=== PATIENT | female | born 1995 | race Asian ===

== ENCOUNTER 2017-02-15 22:49 | Emergency (ER) | payer BC, OTHER ==
[~2017-02-15] VITALS: Ht 162.6 cm; Wt 78.0 kg
[2017-02-15 23:01] VITALS: Ht 162.6 cm; Wt 78.0 kg
[2017-02-16] MEDS ORDERED: LORAZEPAM 1 MG TAB PO ONE (00:30)
[2017-02-16] MEDS ORDERED: ALBUTEROL 0.083% (NEB) 2.5 MG/3 ML AMP NEB STA (00:42)
[2017-02-16 00:46] LABS: BARBITURATES Negative (NEGATIVE)
--- NOTE | 2017-02-16 00:49 | RADRPT ---
PROCEDURE: XR Chest. CLINICAL INDICATION: Shortness of breath. TECHNIQUE: Single frontal chest x-ray. COMPARISON: None. FINDINGS: The cardiomediastinal silhouette is unremarkable. The lungs are clear. No focal infiltrate is seen. There is no pleural effusion. There is no pneumothorax. The osseous structures are unremarkable. IMPRESSION: 1. No active disease. RPTAT: [facility]K .Anthony Rosenthal MD, MD Date Time Electronically viewed and signed by .Anthony Rosenthal MD, on 02/16/2017 00:48 .K/
[2017-02-16 00:52] LABS: BENZODIAZEPINES Negative (NEGATIVE); CANNABINOIDS Negative (NEGATIVE); COCAINE Negative (NEGATIVE); OPIATES Negative (NEGATIVE)
[2017-02-16 01:26] VITALS: BP 132/77; PULSE 71; RESP 20
[2017-02-16 01:31] LABS: D-DIMER < 220.00 ng/ml (<460)
[2017-02-16] MEDS ORDERED: LORA-441 PO (01:35)
--- NOTE | 2017-02-16 01:35 | ERD ---
ER Documentation Chief Complaint Date/Time DATE: 02/15/17 Chief Complaint Shortness of breath HPI The patient is a 22-year-old female, with a history of asthma, who presents the Emergency Department with complaint of shortness of breath for the past 3 days. The patient reports that since Sunday she has been experiencing intermittent shortness of breath. She feels as if she needs to take deeper breaths. However, she denies any wheezing. The patient notes that she has a history of asthma she has been using her hand-held nebulizer approximately 2 times daily, with very minimal relief of symptoms. As her symptoms continued for the third day today, she called her mother, who brought her to the emergency department for evaluation. She denies chest pain, palpitations, lethargy or cough. Denies lower extremity edema, calf swelling or calf tenderness. Denies recent travel. Denies any exogenous estrogen use or OCP use. Denies history of DVT/PE. Denies recent surgeries. Denies recent . Denies dysuria, hematuria or flank pain. Denies any illicit drug use. Denies recent URI-type symptoms, including rhinorrhea, nasal congestion, sore throat. The patient's mom believes that the patient's symptoms are likely secondary to stress/anxiety. ROS All systems reviewed and are negative except as per history of present illness. Medications Home Meds Active Scripts Lorazepam* (Ativan*) 0.5 Mg Tablet, 0.5 MG PO Q8, #4 TAB Prov:CAESAR CONTI PA-C 02/16/17 Allergies Allergies: Coded Allergies: No Known Drug Allergies (Verified Allergy, Unknown, 02/15/17) PMhx/Soc Medical and Surgical Hx: pt denies Surgical Hx Hx Respiratory Disorders: Yes (asthma) Hx Alcohol Use: No Hx Substance Use: No Hx Tobacco Use: No Smoking Status: Never smoker Physical Exam Vitals Vital Signs Date Time Temp Pulse Resp B/P Pulse Ox O2 Delivery O2 Flow Rate FiO2 02/16/17 01:26 71 20 132/77 99 Room Air 02/16/17 00:55 76 18 99 21 02/15/17 23:01 97.8 70 21 139/80 100 Physical Exam GENERAL: Well-developed, well-nourished, female, in no acute respiratory distress. HEENT: Head is normocephalic, atraumatic. No scleral pallor or icterus. Pupils equal, round and reactive to light. Extraocular movements intact. Conjunctiva pink. Nares are patent bilaterally. Bilaterally tympanic membranes are clear with no evidence of erythema, effusion or dulling of the light reflex. Moist mucous membranes. Clear oropharynx. No pharyngeal erythema or exudates. Uvula is midline. No trismus. No stridor. No excessive drooling. Phonation is normal. No submandibular swelling. NECK: Supple. No masses, no tenderness, no lymphadenopathy. Full range of motion. RESPIRATORY: Lungs are clear to auscultation bilaterally. No rales, rhonchi or wheezing. Equal breath sounds. Normal expiratory effort. No accessory muscle use. Symmetric expansion. Speaking in full sentences. CARDIOVASCULAR: Regular rate and rhythm. S1 and S2 normal. No murmurs, rubs, or gallops. EXTREMITIES: No clubbing, cyanosis, or edema. Normal skin perfusion. Moving all extremities. No calf swelling or calf tenderness. No focal swelling or erythema. NEUROLOGIC: The patient is alert, awake, and oriented x 3. No focal neurologic deficits. INTEGUMENT: Skin is intact. Warm and dry. No rashes. PSYCHIATRIC: Cooperative. Results 24 hrs Laboratory Tests Test 02/15/17 23:40 02/15/17 23:45 Urine Opiates Screen Negative Urine Barbiturates Negative Urine Amphetamines Screen Negative Urine Benzodiazepines Screen Negative Urine Cocaine Screen Negative Urine Cannabinoids Negative D-Dimer < 220.00ng/ml D-Dimer Comment Current Medications Medications (Trade) Dose Ordered Sig/Vero Route PRN Reason Start Time Stop Time Status Last Admin Dose Admin Lorazepam (Ativan) 1 mg ONCE ONCE PO 02/16/17 00:30 02/16/17 00:31 DC 02/16/17 00:12 Albuterol (Proventil 0.083% (Neb)) 2.5 mg ONCE STAT NEB 02/16/17 00:42 02/16/17 00:43 DC 02/16/17 00:55 Procedures/MDM DIAGNOSTIC TESTS AND INTERPRETATION: PROCEDURE: XR Chest. CLINICAL INDICATION: Shortness of breath. TECHNIQUE: Single frontal chest x-ray. COMPARISON: None. FINDINGS:The cardiomediastinal silhouette is unremarkable. The lungs are clear. No focal infiltrate is seen. There is no pleural effusion. There is no pneumothorax. The osseous structures are unremarkable. IMPRESSION: No active disease. .Anthony Rosenthal MD, MD Date Time Electronically viewed and signed by .Anthony Rosenthal MD, on 02/16/2017 00:48 EKG: Reviewed and Interpreted by: EKG Interpretation: Sinus rhythm. Rate 65. Normal axis. No ST elevations or depressions. No ectopy. No bundle-branch block. The patient's case was reviewed and discussed with , who recommends obtaining EKG, CXR, D-dimer and urine tox. Does not recommend further testing at this time. Given that no acute findings were noted, recommends that patient be discharged home to follow up as an outpatient. MEDICAL DECISION MAKING: This is a 22-year-old female presenting to the Emergency Department with complaint of shortness of breath since Sunday. The patient had no significant abnormalities noted on physical examination. Vital signs were normal. EKG performed revealed no acute ST/T changes, no evidence of ischemia. Chest x-ray performed with no acute cardiopulmonary abnormalities noted. Do not suspect pulmonary embolism, D-dimer negative and patient is PERC negative. Urine tox screen negative. The patient was given a dose of Ativan and (per her request) a breathing treatment of Albuterol in the ED. On re- evaluation patient's symptoms had resolved. Upon my review and interpretation of the patient's presentation and ED course, I believe the patient's symptoms are most consistent with shortness of breath, possibly secondary to underlying anxiety reaction. The clinical presentation does not suggest an acute coronary syndrome, acute pulmonary embolism or any other emergent medical condition at this time. At this time the patient is in stable condition and therefore can be discharged home with a few tablets of Ativan and given strict return precautions for signs of deteriorating or worsening condition. The patient is advised to follow up with a primary care provider within 1-2 days for reevaluation and further management, or return to the ER sooner for any new or worsening symptoms. I shared my medical decision making and plan with the patient at length and in great detail, and the patient verbally understands and agrees with the plan for further observation and care as an outpatient. At the time of discharge, all questions were answered. Departure Diagnosis: Primary Impression: Shortness of breath Additional Impression: Anxiety Condition: Stable Patient Instructions: Coping with Shortness of Breath: Controlling Stress, Your Body's Response to Anxiety Additional Instructions: Call your primary care doctor TOMORROW for an appointment during the next 1-2 days.See the doctor sooner or return here if your condition worsens before your appointment time. CAESAR CONTI PA-C Feb 16, 2017 01:35
== END 2017-02-16 01:39 | disposition home or self-care (01) ==
LOC: FTE 22:49
DX: R06.02 Shortness of breath (principal); F41.9 Anxiety disorder, unspecified; J45.909 Unspecified asthma, uncomplicated
CPT/HCPCS: 36415; 71010; 80307; 85378; 93005; 94664